=== PATIENT | female | born 1970 | race Caucasian/White ===

== ENCOUNTER 2021-07-04 06:54 | Emergency (ER) | payer BC, SELFPAY ==
[2021-07-04 06:56] VITALS: BP 164/104; PULSE 76; RESP 16; TEMP 36.4; O2SAT 99; BMI 41.9
--- NOTE | 2021-07-04 07:12 | ED.VIS.LOWEX ---
HPI History of Present Illness HPI Narrative: Patient presents with with right knee pain that began yesterday. Patient states she was taking in using a shovel when she felt her knee pop. Patient states this has done this in the past and is usually better by the next day. Patient states today her pain is no better. Patient states her pain is constant aching. Patient states her pain is worse with any attempt at weightbearing. Patient states she is able to put some weight on the tiptoes but is unable to put any weight with a flat foot. Patient admits to some tingling in her toes. Patient denies any weakness. Patient denies any other injuries. Chief Complaint: Lower Extremity Injury Informant: patient Occured/Mechanism Mechanism/Context: Yes injury Onset/Context/Timing Onset: Yesterday Context: Sudden Onset Timing: Continuous Quality of Pain: Aching Worsened by: Weightbearing Relieved by: Rest Associated Symptoms Associated Symptoms: Positive for Parasthesia; Negative for Weakness and Loss of Funtion PFSH PFSH Medical History (Updated 07/04/21 @ 08:[address] Lokesh Rodriguez DO) Hypertension Allergy/AdvReac Type Severity Reaction Status Date / Time No Known Allergies Allergy Verified 07/04/21 06:58 Surgical History (Updated 07/04/21 @ 07:[address] Lokesh Rodriguez DO) History of section Hx of cholecystectomy Social History Smoking Status: Never smoker ROS ROS ED Constitutional Constitutional ED: Denies chills or fever(s) Eyes Eyes: Denies blurry vision or change in vision ENT ENT ED: Denies rhinorrhea or sore throat Cardiovascular Cardiovascular: Denies chest pain or palpitations Respiratory/Chest Respiratory/Chest: Denies cough or dyspnea Gastrointestinal Gastrointestinal: Reports nausea; Denies vomiting Genitourinary Genitourinary ED: Denies dysuria or hematuria Musculoskeletal Musculoskeletal: Reports back pain; Denies neck pain Integumentary Denies abscess or rash Neurologic Neurologic: Denies headache(s) or weakness Allergic/Immunologic Allergic/Immunologic ED: Denies mouth swelling or urticaria EXAM Physical Exam Const Vital Signs: 07/04/21 06:56 Temperature 97.5 F L Temperature Source Temporal Pulse Rate 76 Respiratory Rate 16 Blood Pressure 164/104 H Blood Pressure Mean 124 Pulse Ox 99 Oxygen Delivery Method Room Air Positive well nourished, well developed and obese General Appearance ED: well developed and NAD Nutritional Appearance: obese HEENT Reports moist mucous membranes Neck full ROM and supple Extremity Extremity Narrative: There is diffuse tenderness over the right knee. There is a mild effusion. There is no edema or ecchymosis. There is no bony crepitance or step-off. Range of motion was limited in all motions of the right knee secondary to pain. Extensor mechanism is intact. Strength is 5/5 bilaterally in the lower extremities. There are no sensory deficits noted. Posterior tibial pulses are equal bilaterally. Neuro oriented x3, CN's II-XII intact bilaterally, moves all extremities and no sensory deficits noted Sensorium / Orientation: alert Motor Exam: strength 5/5 throughout Psych mental status grossly normal MDM MDM MDM Narrative Medical decision making narrative: X-rays of the right knee were obtained. There are 4 views. On my interpretation, there is no acute fracture. There is no dislocation. There is some mild soft tissue swelling. There is a small joint effusion. Radiologist also interpreted the x-rays and agrees. Patient was advised of her findings. Patient was instructed to ice and elevate the right knee. Patient was instructed to use her crutches as needed. Patient was instructed to take Tylenol or ibuprofen as needed for pain. Patient was instructed to follow-up with her primary care physician in 3 to 5 days for reevaluation. Patient understood and was agreeable with the plan. All questions were answered. Radiography Diagnostic Testing: Clinical Impression(s) from Imaging Studies Knee X-Ray 07/04/21 07:45 IMPRESSION: Arthrosis of the medial femorotibial compartment. Joint effusion. Electronically Signed: Nick Hill MD at 8:17 EDT , Discharge Plan Triage Chief Complaint: Lower Extremity Injury ED Provider: Lokesh Rodriguez Dx/Rx/DC Orders Clinical Impression: Right knee sprain Instructions: ED Knee Sprain Primary Care Provider: Rui Muhammad Referrals: Rui Muhammad MD [Primary Care Provider] - 3-5 Days Disposition Disposition: Home, Self Care
--- NOTE | 2021-07-04 07:45 | RAD_ITS ---
STUDY: X-RAY - RIGHT KNEE REASON FOR EXAM: Right knee pain, right knee injury. TECHNIQUE: 4 view(s) of the knee. COMPARISON: None. FINDINGS: Normal visualized distal femur. Normal visualized proximal tibia and fibula. Normal proximal tibiofibular articulation. There is joint space narrowing of the medial femorotibial compartment. Normal lateral femorotibial compartment. Normal patellofemoral articulation. There is a joint effusion. RAD/Knee 4 or More Views IMPRESSION: Arthrosis of the medial femorotibial compartment. Joint effusion. Electronically Signed: Nick Hill MD at 8:17 EDT ,
[2021-07-04 08:55] VITALS: RESP 16
== END 2021-07-04 08:55 | disposition home or self-care (01) ==
PROVIDERS: Emergency Provider Emergency Medicine; PCP Family Medicine; Visit Provider Emergency Medicine
DX: S83.91XA Sprain of unspecified site of right knee, initial encounter (principal); E66.9 Obesity, unspecified; X58.XXXA Exposure to other specified factors, initial encounter
CPT/HCPCS: 73564; 99282